=== PATIENT | female | born 1955 | race Caucasian/White ===

== ENCOUNTER 2023-12-19 09:14 | Outpatient (CLI) | payer MEDICARE, SELFPAY ==
--- NOTE | ~2023-12-19 | XR_ITS ---
Supine and upright views of the abdomen Clinical history: Right ureteral stone Findings: Bowel gas pattern is nonspecific. No evidence for obstruction or free air. No abnormal mass lesion or calcification is seen. Probable pelvic phleboliths. Osseous structures are intact. Impression: No significant abnormality is seen. Reviewed, dictated and finalized at [facility]. RBOARD BOX MAKER Impression: No significant abnormality is seen.
== END 2023-12-19 09:15 | disposition home or self-care (01) ==
PROVIDERS: PCP Family Medicine; Visit Provider Urology
DX: N20.1 Calculus of ureter (principal)
CPT/HCPCS: 74018

== ENCOUNTER 2024-03-13 01:19 | Day surgery (SDC) | payer MEDICARE, SELFPAY ==
--- NOTE | 2024-03-06 11:00 | PC.NURSE ---
Report to the Outpatient Waiting Room, entrance under the green pavilion located off [facility], at time _9 AM on date _03/13/24 . Planned Procedure Time: __11 AM .? Time changes happen often and if your time is changed the preop area will call you the afternoon before. - You and your visitor will be asked to self-screen and do not enter if you have any COVID symptoms. Please call surgeon if you need to reschedule. - A mask is optional within the hospital at this time. Patients may have clear liquids (water, carbonated beverages, clear teas, apple juice) until 3 hours prior to surgery( 8AM) with a maximum of 20 ounces. - No food from midnight until time of surgery and no smoking. This includes no chewing gum, candy or mints. Take only the following medications with a SIP of water on the morning of surgery: ___INHALER IF NEEDED DO NOT STOP ANY OF YOUR OTHER PRESCRIPTION MEDICATIONS PRIOR TO SURGERY EXCEPT THE FOLLOWING Medications to discontinue per physician __HOLD ALL VITAMINS AND SUPPLEMENTS 3 DAYS PRE OP Date to take last dose____03/09/24 Please no make-up, nail cypriot, hairspray, perfume, deodorant, or body powder the day of surgery.? No jewelry (including any body piercings) or valuables the day of surgery, leave them at home.? Please take a shower or bath the night before, or the morning of, surgery with an antibacterial soap.? Wear comfortable, loose fitting clothing.? Children are encouraged to wear pajamas. - Jewelry must be removed prior to entering the operating room.? Rings and piercings that are not removed may be cut off. - The hospital will not accept responsibility for valuables.? - Please leave all valuables, including medications, at home the day of surgery. If you are going home after surgery, a licensed driver manager must drive you home.? - NO public transportation without another adult if you receive anesthesia. - We recommend that an adult stay with you for 24 hours following discharge. - We also recommend that you do not drive, make important decision, drink alcoholic beverages, or take any drugs that were not prescribed by your health care provider for at least 24 hours after your discharge time. For Pediatric surgeries, we recommend two adults accompany the child home. Follow any additional instructions given to you from your surgeon. Telephone instructions given to ___PATIENT and asked if any additional questions and then verbalized understanding. Patient advised to call surgeon office or pre surgery nurse liaison [phone] if any additional questions.
[2024-03-06 11:22] VITALS: BMI 26.3
--- OUTSIDE RECORDS SUMMARY | 2024-03-13 01:22 | XMS_ITS | Encounter Summary ---
Author Organization [facility] Address [address] [place] [address]. [place], [place] [address] [place] [address] Care Team Providers Care Academic Adviser Name Role Phone Matt Hale MD Primary Care Provider [phone] Roger [place] MD Primary Care Provider [phone] Adela Patino MD Primary Care Provider [phone] Encounter Details Date Type Department Care Team (Late st Contact Info) Description 07/19/2018 Abstract SFL CONVERSION [address] [place] [address] , Generic Conversion, Social History Tobacco Use Types Packs/Day Years Used Date Smoking Tobacco: Never Assessed Comments Unknown Sex and Gender Information Value Date Recorded Sex Assigned at Female 02/12/2019 10:15 AM DIRECTOR EQUIPMENT Legal Sex Female 10:50 PM DIRECTOR EQUIPMENT Gender Identity Female 02/12/2019 10:15 AM DIRECTOR EQUIPMENT Sexual Orientation Not on file documented as of this encounter Plan of Treatment Upcoming Encounters Date Type Department Care Team (Late st Contact Info) Description 03/30/2024 8:00 AM DIRECTOR EQUIPMENT Appointment [facility] [address] [place] [address] Angy Lugo PA [address] [place] [address] documented as of this encounter Visit Diagnoses Not on filedocumented in this encounter Additional Health Concerns Infection Onset Date Last Indicated Resolved Time COVID-19 Rule Out 07/05/2020 07/05/2020 07/05/2020 7:56 PM CDT COVID-19 Rule Out 01/14/2021 01/14/2021 01/14/2021 7:26 PM DIRECTOR EQUIPMENT documented as of this encounter Care Teams Academic Adviser Relationship Specialty Start Date End Date Matt Hale MD [address] [place] [phone] PCP - General FAMILY PRACTICE 08/05/18 07/04/20 Roger Newton MD [address] [place] [phone] PCP - General FAMILY PRACTICE 07/05/20 01/16/21 Adela Patino MD [address] [place] [id number] PCP - General FAMILY PRACTICE 10/24/23 documented as of this encounter
--- OUTSIDE RECORDS SUMMARY | 2024-03-13 01:22 | XMS_ITS | Clinical Summary ---
Author Organization [facility] Address [address] [place] [address] Phone Care Team Providers Care Wood Sash And Frame Carpenter Name Role Phone Matt Hale MD Primary Care Provider [phone] Social History Tobacco Use Types Packs/Day Years Used Date Smoking Tobacco: Never Assessed Comments Unknown Sex and Gender Information Value Date Recorded Sex Assigned at Not on file Legal Sex Female 11:22 PM CDT Gender Identity Not on file Sexual Orientation Not on file Plan of Treatment Health Maintenance Due Date Last Done Comments DEXA Bone Density 1955 Hepatitis C Virus (HCV) Screening 1955 TdaP Immunization 1955 Colonoscopy 2001 Colorectal Cancer Screening 2001 Cologuard 2006 Immunochemical Fecal Occult Blood 2006 Mammogram 2006 Pneumococcal Immunization (5 0+ years) (1 of 1 - PCV) 2006 Zoster Immunization (1 of 2) 2006 Influenza Immunization (#1) 2023 12/03/2016 SARS-COV-2 Immunization ( season) 2023 11/22/2020, 04/05/2020, 03/15/2020 Respiratory Syncytial Virus (RSV) Immunization (Adult) (1 - 1-dose 75+ series) 06/21/2031 Hepatitis B Immunization Aged Out No longer eligible based on patient's age to complete this topic Meningococcal Immunization (ACWY) Aged Out No longer eligible b ased on patient's age to complete this topic Rotavirus Immunization Aged Out No lo nger eligible based on patient's age to complete this topic Insurance [facility] Care Teams Wood Sash And Frame Carpenter Relationship Specialty Start Date End Date Matt Hale MD [address] [place] [address] PCP - General Geriatric Medicine 03/18/18
--- OUTSIDE RECORDS SUMMARY | 2024-03-13 01:22 | XMS_ITS | Encounter Summary ---
Author Organization [facility] Address [address] [place] [address]. [place], [place] [address] [place] [address] Care Team Providers Care Supervisor Finishing Name Role Phone Matt Hale MD Primary Care Provider [phone] Roger Newton MD Primary Care Provider [phone] Adela Patino MD Primary Care Provider [phone] Reason for Referral * Surgical (Routine) - Closed Specialty Diagnoses / Procedures Referred By Contac roberta Referred To Contact Diagnoses meniscus tear Procedures Case request operating room: ARTHROSCOPY KNEE KNEE SCOPE,MED/LAT MENISECTOMY Pete Patel MD [address] [place] [address] Phone: tel: fax: Pete Patel MD [address] [place] [address] Phone: tel: fax: Referral ID Status Reason Start Date Expiration Date Visits Re quested Visits Authorized [id number] Closed 09/16/2018 10/18/2019 1 1 Encounter Details Date Type Department Care Team (Late st Contact Info) Description 09/16/2018 Prep for Procedure [facility] [place] [address] Pete Patel MD [address] [place] [address] Social History Tobacco Use Types Packs/Day Years Used Date Smoking Tobacco: Never Smokeless Tobacco: Never Alcohol Use Standard Drinks/Week Comments Yes 0 (1 standard drink = 0.6 oz pur e alcohol) Occasionally Comments Unknown Sex and Gender Information Value Date Recorded Sex Assigned at Female 02/12/2019 10:15 AM DIGITAL MARKETING MANAGER Legal Sex Female 10:50 PM DIGITAL MARKETING MANAGER Gender Identity Female 02/12/2019 10:15 AM DIGITAL MARKETING MANAGER Sexual Orientation Not on file documented as of this encounter Plan of Treatment Upcoming Encounters Date Type Department Care Team (Late st Contact Info) Description 03/30/2024 8:00 AM DIGITAL MARKETING MANAGER Appointment [facility] [address] [facility] [place] [address] Angy Lugo PA [address] [place] [address] Scheduled Orders Name Type Priority Associated Diagnoses Orde r Schedule Case request operating room: ARTHROSCOPY KNEE Case Request Routine Once for 1 Occurrences starting 09/16/2018 until 09/16/2018 documented as of this encounter Visit Diagnoses Not on filedocumented in this encounter Additional Health Concerns Infection Onset Date Last Indicated Resolved Time COVID-19 Rule Out 07/05/2020 07/05/2020 07/05/2020 7:56 PM CDT COVID-19 Rule Out 01/14/2021 01/14/2021 01/14/2021 7:26 PM DIGITAL MARKETING MANAGER documented as of this encounter Care Teams Supervisor Finishing Relationship Specialty Start Date End Date Matt Hale MD [address] [place] [phone] PCP - General FAMILY PRACTICE 08/05/18 07/04/20 Roger Newton MD [address] [place] [phone] PCP - General FAMILY PRACTICE 07/05/20 01/16/21 Adela Patino MD [address] [place] [address] PCP - General FAMILY PRACTICE 10/24/23 documented as of this encounter
--- OUTSIDE RECORDS SUMMARY | 2024-03-13 01:22 | XMS_ITS | Clinical Summary ---
Author Organization [facility] Address [address] [place] [address]. [place], [place] [address] [place] [address] Care Team Providers Care Circle Cutting Saw Operator Name Role Phone Adela Patino MD Primary Care Provider [phone] Allergies Active Allergy Reactions Criticality Noted Date Comments Codeine Hives 11/26/2017 Ibuprofen Other (see comment) 09/17/2018 Not allergic just can't take because of her kidneys Penicillins Unknown 11/26/2017 Patient states this happened in childhood- reaction unknown Sertraline Palpitations Low 11/26/2017 Sulfa Antibiotics Unknown 11/26/2017 Patient states this is since childhood- reaction unknown Medications PROAIR HFA 108 (90 Base) MCG/ACT inhaler Inhale 1 puff into the lungs as needed. 04/22/2019 Active FLOVENT HFA 110 MCG/ACT inhaler Inhale 1 puff into the lungs as needed. 04/22/2019 Active nystatin powder 09/19/2020 Act rell calcium carb-cholecalci ferol (OSCAL) 250-3.125 MG-MCG tablet Take 1 tablet by mouth daily. Active oxyCODONE-aceta minophen (PERCOCET) 5-325 MG tabletIndicatio ns:Acute Pain < 3 Day Supply Take 1 tablet by mouth every 4 (four) hours as needed for Pain. Indications: Acute Pain < 3 Day Supply 18 tablet 11/05/2023 Active tamsulosin (FLOMAX) 0.4 MG Cap Take 1 capsule (0.4 mg total) by mouth daily. 30 capsule 11/05/2023 Active metoclopramide (REGLAN) 10 MG tablet Take 1 tablet (10 mg total) by mouth every 6 (six) hours as needed (nausea). 20 tablet 11/05/2023 Active Active Problems Problem Noted Date Diagnosed Date Adductor tendonitis 05/29/2022 Bicipital tendinitis of left shoulder 06/12/2019 S/P laparoscopic cholecystectomy 03/04/2019 Right nephrolithiasis 02/12/2019 Hepatic steatosis 02/12/2019 Adult celiac disease (HHS/HCC) 11/26/2017 Resolved Problems Problem Noted Date Diagnosed Date Resolved Date Abnormal biliary HIDA scan 02/20/2019 0 03/04/2019 Overview (02/20/2019): Added automatically from request for surgery [id number] RUQ pain 02/12/2019 03/04/2019 Aftercare following surgery 10/08/2018 02/12/2019 Acute medial meniscus tear o f left knee, subsequent encounter 09/08/2018 02/12/2019 Primary osteoarthritis of left knee 08/29/2018 02/12/2019 Pain in the side 11/26/2017 02/12/2019 Encounter for preventive health examination 11/06/2017 02/12/2019 Encounters Date Type Department Care Team Description 01/31/2024 2:13 PM SANDING SUPERVISOR - 01/31/2024 11:59 PM SANDING SUPERVISOR Hospital Encounter [facility] [address] [place] [address] Angy Lugo, PA Discharge Disposition: Home or Self Care (Routine Discharge) 01/31/2024 Travel from Last 3 Months Family History Medical History Relation Comments Cancer Father Breast Cancer Maternal Aunt age unknown Cancer Maternal Grandmother Heart Disease Maternal Grandmother Cancer Mother Cancer Sister Relation Status Comments Father Maternal Aunt Maternal Grandmother Mother Sister Social History Tobacco Use Types Packs/Day Years Used Date Smoking Tobacco: Former Cigarettes Q uit: 06/30/1988 Smokeless Tobacco: Never Tobacco Cessation:Counseling Given: Not Answered Alcohol Use Standard Drinks/Week Comments Yes 1.7 (1 standard drink = 0.6 oz p ure alcohol) Occasionally Comments No Sex and Gender Information Value Date Recorded Sex Assigned at Female 02/12/2019 10:15 AM SANDING SUPERVISOR Legal Sex Female 10:50 PM SANDING SUPERVISOR Gender Identity Female 02/12/2019 10:15 AM SANDING SUPERVISOR Sexual Orientation Not on file Last Filed Vital Signs Vital Sign Reading Time Taken Comments Blood Pressure 121/69 11/05/2023 12:00 AM CDT Pulse 88 11/04/2023 9:41 PM CDT Temperature 37.1 ??C (98.8 ??F) 11/04/2023 9:41 PM CD T Respiratory Rate 16 11/04/2023 9:41 PM CDT Oxygen Saturation 95% 11/05/2023 12:15 AM CDT Inhaled Oxygen Concentration - - Weight 72.6 kg (160 lb) 11/04/2023 9:37 PM CDT Height 165.1 cm (5' 5 ) 11/04/2023 9:37 PM CDT Body Mass Index 26.63 11/04/2023 9:37 PM CDT Plan of Treatment Upcoming Encounters Date Type Department Care Team (Late st Contact Info) Description 03/30/2024 8:00 AM SANDING SUPERVISOR [facility]ointment [facility] [address] [place] [address] Angy Lugo PA [address] [place] [address] Health Maintenance Due Date Last Done Comments Hepatitis C 1974 DTaP, Tdap and Td Vaccines (1 - Tdap) 06/21/1975 RSV Immunization or 60+ Years (1 - Risk 60-74 years 1-dose series) 2016 Annual Medicare Wellness Visit 2021 Pneumococcal Vaccine: 65+ Years (1 of 1 - PCV) 2021 COVID-19 Vaccine ( season) 2023 11/22/2020, 04/05/2020, 03/15/2020 Influenza Adult (#1) 2023 12/27/2020, 11/24/2019, 11/18/2018, Additional history exists Mammogram Screening 03/18/2025 03/18/2023, 03/15/2022, 03/09/2021, Additional history exists Colorectal Cancer Screening Colonoscopy (10 Years) 07/08/2030 07/08/2020, 07/08/2020 Zoster Vaccines Completed 06/30/2019, 04/24/2019 Dexa Scan (General) Completed 06/06/2023 Meningococcal B Vaccine Aged Out No l onger eligible based on patient's age to complete this topic Meningococcal Vaccine Aged Out No daniella jonatan eligible based on patient's age to complete this topic RSV Immunizations Under 20 Months Aged Out No longer eligible based on patient's age to complete this topic Procedures Procedure Name Priority Date/Time Associated Diagnosis Comments XR HIP RT 2V Routine 01/31/2024 2:35 PM SANDING SUPERVISOR Right hip pain BONE DENSITY/DEXA Routine 06/06/2023 2:5 3 PM CDT Post-menopausal MG SCREENING W MIKO AMBER DIGI Routine 03/18/2023 8:33 AM SANDING SUPERVISOR Encounter for screening mammogram for breast cancer COLONOSCOPY 07/08/2020 7:39 AM CDT from Last 3 Months or Most Recently Relevant to Health Maintenance Results * XR HIP RT 2V (01/31/2024 2:35 PM SANDING SUPERVISOR) Anatomical Region Laterality Modality Hip Radiographic Lu ging 02/01/2024 3:34 PM SANDING SUPERVISOR Impressions 02/01/2024 3:35 PM SANDING SUPERVISOR IMPRESSION: Mild degenerative changes about the right hip. This is stable compared back to October. Referred By: ?? Interpreted By: Naeem Cordero MD, 02/01/2024 3:34 PM Narrative 02/01/2024 3:35 PM SANDING SUPERVISOR [address] [place] [address] Procedure(s): XR HIP RT 2V Date of service: 01/31/2024 2:35 PM Provided clinical information: 68 years, Female, RIGHT HIP PAIN Procedure and materials: AP and frog-leg view right hip. Comparison studies: October 24, 2023. Findings: Sclerosis is present about the right acetabulum. No fracture, dislocation or acute bony abnormality. Mild joint space narrowing of the right femoral acetabular joint. Procedure Note Naeem Cordero MD - 02/01/2024 [facility] [address] [place] [address] Procedure(s): XR HIP RT 2V Date of service: 01/31/2024 2:35 PM Provided clinical information: 68 years, Female, RIGHT HIP PAIN Procedure and materials: AP and frog-leg view right hip. Comparison studies: October 24, 2023. Findings: Sclerosis is present about the right acetabulum. No fracture, dislocation or acute bony abnormality. Mild joint spacenarrowing of the right femoral acetabular joint. IMPRESSION: Mild degenerative changes about the right hip. This is stable compared to October. Referred By: Interpreted By: Naeem Cordero MD, 02/01/2024 3:34 PM [facility] Final Result * BONE DENSITY/DEXA (06/06/2023 2:53 PM CDT) Anatomical Region Laterality Modality Bone Bone Density 06/07/2023 8:10 AM CDT Impressions 06/07/2023 8:12 AM CDT Impression: 1. Within normal limits in the lumbar spine. 2. Consistent with osteopenia in both hips. Ordered By: ELOISE RHOADES Interpreted By: Peyman Tobar MD, 06/07/2023 8:10 AM Narrative 06/07/2023 8:12 AM CDT Examination: DEXA Bone densitometry Clinical history: Postmenopausal. Osteoporosis screening. Comparison: None. Technique: DEXA bone mineral density evaluation was performed in the AP projection over the lumbar spine and over both hips in the AP projection utilizing standard imaging techniques. Assessment: The BMD measured at the AP spine L1-L4 is 1.030 g/cm2 with a T-score of -0.2 and a Z-score of ??1.7. ?? Bone density is up to 10% below young normal. This patient is considered normal according to the World Health Organization (WHO) criteria. Fracture risk is low. The BMD measured at the femoral neck left is 0.654 g/cm2 with a T-score of -1.8 and a Z-score of -0.1. ?The patient is considered osteopenic according to World Health Organization (WHO) criteria. Bone density is between 10 and 25% below young normal. Fracture risk is moderate. Treatment is advised. The BMD measured at the femoral neck right is 0.731 g/cm2 with a T-score of -1.1 and a Z-score of ??0.6. ?? The patient is considered osteopenic according to World Health Organization (WHO) criteria. Bone density is between 10 and 25% below young normal. Fracture risk is moderate. Treatment is advised. FRAX 10-year fracture risk: Major Osteoporotic Fracture: 16%. Hip Fracture: 2.2%. Recommendations: All patients should ensure an adequate intake of dietary calcium and vitamin D. The NOF recommend adults under the age of 50 need 1000 mg of calcium and 400-800 IU of vitamin D daily. Effective therapy for the prevention and treatment of osteoporosis include biphosphonates. Follow-up: People with diagnosed cases of osteoporosis or at high risk for fracture should have regular bone mineral density test. For patients eligible for Medicare, routine testing is allowed once every 2 years. Testing frequency can be increased to one year for patients who have rapidly progressing disease, those who are receiving or discontinuing medical therapy to restore bone mass, or have additional risk factors. Based on these results, a followup exam is recommended in two years. Procedure Note Peyman Tobar MD - 06/07/2023 Examination: DEXA Bone densitometry Clinical history: Postmenopausal. Osteoporosis screening. Comparison: None. Technique: DEXA bone mineral density evaluation was performed in the APprojection over the lumbar spine and over both hips in the AP projectionutilizing standard imaging techniques. Assessment: The BMD measured at the AP spine L1-L4 is 1.030 g/cm2 with a T-score of-0.2 and a Z-score of 1.7. Bone density is up to 10% below youngnormal. This patient is considered normal according to the World HealthOrganization (WHO) criteria. Fracture risk is low. The BMD measured at the femoral neck left is 0.654 g/cm2 with a T-score of-1.8 and a Z-score of -0.1. The patient is considered osteopenicaccording to World Health Organization (WHO) criteria. Bone density isbetween 10 and 25% below young normal. Fracture risk is moderate.Treatment is advised. The BMD measured at the femoral neck right is 0.731 g/cm2 with a T-scoreof -1.1 and a Z-score of 0.6. The patient is considered osteopenicaccording to World Health Organization (WHO) criteria. Bone density isbetween 10 and 25% below young normal. Fracture risk is moderate.Treatment is advised. FRAX 10-year fracture risk: Major Osteoporotic Fracture: 16%. Hip Fracture: 2.2%. Recommendations: All patients should ensure an adequate intake of dietary calcium andvitamin D. The NOF recommend adults under the age of 50 need 1000 mg ofcalcium and 400-800 IU of vitamin D daily. Effective therapy for theprevention and treatment of osteoporosis include biphosphonates. Follow-up: People with diagnosed cases of osteoporosis or at high risk for fractureshould have regular bone mineral density test. For patients eligible forMedicare, routine testing is allowed once every 2 years. Testing frequencycan be increased to one year for patients who have rapidly progressingdisease, those who are receiving or discontinuing medical therapy torestore bone mass, or have additional risk factors. Based on these results, a followup exam is recommended in two years. Impression: 1. Within normal limits in the lumbar spine. 2. Consistent with osteopenia in both hips. Ordered By: ELOISE RHOADES Interpreted By: Peyman Tobar MD, 06/07/2023 8:10 AM us Eloise Rhoades APNP DEXA Final Resul t * MG SCREENING W MIKO AMBER DIGI (03/18/2023 8:33 AM SANDING SUPERVISOR) Anatomical Region Laterality Modality Breast Bilateral Mammography 03/18/2023 10:4 6 AM SANDING SUPERVISOR Narrative 03/18/2023 10:46 AM SANDING SUPERVISOR Examination: Digital screening mammogram with CAD. Clinical history: Asymptomatic patient presents for routine screening. Comparison: 03/15/2022, 03/09/2021, 01/20/2020, 01/13/2019. Technique: Bilateral digital mammograms. The exam was interpreted with the use of a computer-aided detection (CAD) system. ??Additional 3-D tomosynthesis images were acquired. Tissue density: The breast tissue contains scattered fibroglandular densities. Findings: The breast tissue contains scattered fibroglandular densities. ?? Benign-appearing calcification noted. No suspicious mass, microcalcification or area of architectural distortion can be identified. From a mammographic standpoint, routine followup in one year would seem adequate. IMPRESSION: No suspicious change since the previous exams. Recommendation: 1: Routine Screening ??Bilateral ??in 1 Year Assessment: ACR BI-RADS 2 - BENIGN FINDING(S) Ordered By: SOFIA DOUGLASS Interpreted By: Peyman Tobar MD, 03/18/2023 10:46 AM us Sofia Douglass MD MAMMO Final Result * COLONOSCOPY (07/08/2020 7:39 AM CDT) us Chetan Hdz MD GI PROCEDURE ORDERABLES Final Result from Last 3 Months or Most Recently Relevant to Health Maintenance Insurance [employer] Advance Directives * Full Code (Latest Code Status on File) Date Activated Date Inactivated Comments 01/17/2021 9:41 AM 01/17/2021 12:27 PM Care Teams Circle Cutting Saw Operator Relationship Specialty Start Date End Date Adela Patino MD [address] [place] [address] PCP - General FAMILY PRACTICE 10/24/23
--- NOTE | 2024-03-13 07:15 | WPDHPUPDATE1 ---
History and Physical Update Update Date/Time: 03/13/24 07:15 History and Physical has been reviewed, including an updated exam of the patient. There are NO changes in the patient's condition. Risks, benefits, and alternatives have been discussed and questions answered. Patient agrees to proceed with procedure.
[2024-03-13 08:52] VITALS: BP 144/74; PULSE 62; RESP 16; TEMP 36.7; O2SAT 99
[2024-03-13] MEDS: LACTATED RINGERS 1,000 ML 30 ML IV CONT ×2 (09:28→12:16)
[2024-03-13 09:31] VITALS: BMI 26.1
--- NOTE | 2024-03-13 10:18 | P.PNAN_ITS ---
Anes - Initial Pre Proc Eval Procedure: Operation Date: 03/13/24 11:00 Proposed Procedures p Partial Plantar Fasciectomy Left Loot - Moiz Koch Jr., DPM Date/Time: 03/13/24 10:18 Surgeon: Moiz Koch Jr., DPM Pre Op Diagnosis: plantar fasciitis left foot Patient Data Age: 68 Gender: F Height: 1.65 m Weight: 71.2 kg Last Vital Signs Temp 36.7 C 03/13/24 08:52 Pulse 62 03/13/24 08:52 Resp 16 03/13/24 08:52 BP 144/74 H 03/13/24 08:52 Pulse Ox 99 03/13/24 08:52 O2 Del Method Room Air 03/13/24 08:52 Allergies Allergy/AdvReac Type Severity Reaction Status Date / Time codeine Allergy Severe hives Verified 03/13/24 09:15 penicillin G Allergy Unknown unknown Verified 03/13/24 09:15 Home Medications ?Medication ?Instructions ?Recorded ?Confirmed ?Type cholestyramine (with sugar) 4 gram 1 ea PO DAILY 08/29/22 03/06/24 History oral powder ofloxacin 0.3 % ear drops 5 drp RIGHT EAR DAILY #5 mL 08/29/22 03/06/24 Rx calcium carbonate (Calcium 600) 600 mg PO DAILY 03/06/24 03/13/24 History cholecalciferol (vitamin D3) 125 125 mcg PO DAILY 03/06/24 03/06/24 History mcg (5,000 unit) capsule fluticasone propionate 110 1 inh inhalation PRN 03/06/24 03/06/24 History mcg/actuation HFA aerosol inhaler (Flovent HFA) magnesium gluconate 12.5 mg 250 mg PO HS 03/06/24 03/13/24 History magnesium (250 mg) tablet nitrofurantoin macrocrystal 100 mg 100 mg PO BID UTI 03/06/24 03/13/24 History capsule Patient hx anesthesia problems: post op nausea/vomiting Family hx anesthesia problems: none Results Review: All pre-operative results and documents have been reviewed as part of the pre- operative evaluation. [facility]LY [facility] Past Medical History Medical History (Updated 03/13/24 @ 10:18 by Trino Stone DO) PONV (postoperative nausea and vomiting) Asthma Seizure Family History Family History (Updated 08/29/22 @ 09:28 by Nikia Hercules CMA) Father Alcoholism Lung cancer Mother Cervical cancer Cerebrovascular accident Sibling Cervical cancer Social History Social History (Updated 08/29/22 @ 09:17 by Nikia Hercules CMA) Smoking packs per day: 0.5 Smoking cigarettes per day: 10.0 Years smoked: 8 Smoking pack-years: 4.00 Smoking status: Former smoker Tobacco type: cigarettes Smoking end date: 02/11/87 Alcohol intake: current Drinks per week: 2 Lack of Transportation: No Lack of Food: Never True Current Housing: I Have Housing Concerned About Future Housing: No Difficulty Paying Gas/Electric Bills: No Difficulty Paying for Meds: No Currently Unemployed: No Education: Associate Degree Difficulty w/ Childcare or Family Care: No Living arrangements: with family Spiritual care concerns: No Anes - Eval Final PreProcedure Day of Procedure 03/13/24 10:18 Patient weight: overweight Heart: regular rate and rhythm Lungs: clear to auscultation Airway: Mallampati scale class II Neurological: alert and oriented Last oral intake: >/= 8 hours ASA classification: II Emergent: no Anesthetic plan: proceed Anesthesia type and monitoring: general GIVS and standard monitoring Results Review: All pre-operative results and documents have been reviewed as part of the pre-operative evaluation. Informed Consent: The patient's anesthetic plan and its attendant risks and benefits were discussed with the patient/family/POA. Questions were solicited and answers provided to the satisfaction of the patient/family/POA.
[2024-03-13] MEDS: ceFAZolin 2 GM/D5W 50 ML 2 GM/50 ML BAG IVPB (11:29)
[2024-03-13] MEDS: LIDOCAINE 2% LOCAL INJ 20 ML VIAL 10 ML INFILTRATE (11:49)
[2024-03-13] MEDS: BUPivacaine HCL 0.5% 10 ML AMP INFILTRATE (11:50)
[2024-03-13 12:16] VITALS: BP 107/76; PULSE 77; RESP 12; O2SAT 93
--- NOTE | 2024-03-13 12:18 | P.OP_ITS ---
Procedure Note - Detailed Date of Procedure 03/13/24 Pre-op Diagnosis plantar fasciitis left foot Post-op Diagnosis Same Procedure Performed Partial plantar fasciectomy left foot Surgeon Moiz Koch Jr., DPM Anesthesia MAC and Local Indications Chronic inferior left heel pain Description of Procedure Under mild sedation, the patient was brought in to the operating room, placed on the operating table in the supine position. A pneumatic ankle tourniquet was placed about the patient's left ankle. Following general anesthesia, local anesthesia was obtained about the affected lower extremity utilizing 20 mL of a one to mix of 2% Lidocaine plain and 0.5% M arcaine plain to the tibial nerve. The foot was then scrubbed, prepped, and draped in the usual aseptic manner. An Esmarch bandage was then used to exsanguinate the patient's foot and the pneumatic ankle tourniquet was then inflated. Next, an incision was made starting distal to the medial tubercle of the calcaneus extending distally 3cm. All bleeders were cauterized as necessary. Next the dissection was continued down to the plantar fascia it was exposed medially and laterally with [place] retractors. Two thirds of the medial plantar fascia was transected and a 4mm portion was also cut and discarded. The wound site was flushed with sterile saline. The deep subcutaneous tissue was reapproximated with 3.0 Vicryl and the skin was reapproximated with 2.0 Prolene and 3.0 Prolene in Vertical mattress and Simple interrupted suture technique. Upon completion of the procedure, the plantar incision was dressed with adaptic, 4x4 gauze, kerlix and coban. The pneumatic ankle tourniquet was then deflated and a prompt hyperemic response was noted to all digits of the affected foot. A CAM Walker boot was then applied. The patient did very well with the procedure and the anesthesia. The patient was transferred to the recovery room with vital signs stable and vascular status intact to all toes of the affected foot. Following a period of postoperative monitoring, the patient will be discharged home on the following written and oral postoperative instructions: 1. The patient should keep the dressing clean, dry, and intact. Use a cast protector bag with showers. 2. The patient will be non weight bearing with a knee scooter for one week followed by two weeks of protected weight bearing with CAM walker boot. 3. Patient should ice and elevate the affected foot when at rest. 4. The patient is to contact Dr. Koch for all postop care and if any problems arise. 5. Prescriptions were written for Percocet 5/325 dispensed 40 to be taken 1 p.o. q.4-6 hours as needed for severe pain. . Estimated Blood Loss 1 Drains No Packing Yes Pathology None sent Complications No immediate complications Condition Stable Disposition Same day
[2024-03-13 12:45] VITALS: BP 124/75; PULSE 70; RESP 12; O2SAT 93
[2024-03-13 13:15] VITALS: BP 154/82; PULSE 65; RESP 14
== END 2024-03-13 13:37 | disposition home or self-care (01) ==
PROVIDERS: PCP Family Medicine; Visit Provider Podiatrist Foot & Ankle Surgery
PROC: (CPT 28119; principal; 2024-03-13 11:00)
DX: M72.2 Plantar fascial fibromatosis (principal); Z87.891 Personal history of nicotine dependence
CPT/HCPCS: 28060; J0690; J1100; J2003; J2250; J2405; J2704; J3010; J7120

== ENCOUNTER 2024-04-02 12:45 | Outpatient (CLI) | payer MEDICARE, SELFPAY ==
--- NOTE | ~2024-04-02 | MR_ITS ---
EXAMINATION: MR hip RT wo con DATE: 04/02/2024 13:48 INDICATION: Right hip pain. TECHNIQUE: Magnetic resonance imaging (MRI) of the right hip was performed without intravenous contra st. COMPARISON: Pelvis and right hip radiographs 03/26/2024 FINDINGS: Bones/cartilage: Alignment is normal. No fracture. There is decreased femoral head/neck offset bilaterally, which may be seen with femoral acetabular impingement. There are tiny osteophytes of the hips. Small field-of-v iew images of right hip demonstrate shallow partial-thickness cartilage loss. Labrum: There is a tear of the right acetabular labrum. Fluid: There is no hip joint effusion. No significant trochanteric bursitis. Soft tissues: The gluteus minimus and gluteus medius tendons are normal. The iliopsoas tendons are normal. There is mild tendinopathy of the hamstring origins bilaterally. IMPRESSION: 1. Mild chondrosis of right hip. 2. Tear of right acetabular labrum. Reviewed, dictated and finalized at location A. URIZER
== END 2024-04-02 12:46 | disposition home or self-care (01) ==
LOC: GOSHIMG 12:45
PROVIDERS: PCP Nurse Practitioner Family; Visit Provider Nurse Practitioner Family
DX: M25.551 Pain in right hip (principal)
CPT/HCPCS: 73721

== ENCOUNTER 2024-05-08 13:10 | Outpatient (CLI) | payer MEDICARE, SELFPAY ==
--- NOTE | ~2024-05-08 | XR_ITS ---
EXAMINATION: XR lg joint inject/asp w image DATE: 05/08/2024 13:59 INDICATION: Right hip primary osteoarthritis. TECHNIQUE: A time-out was performed to verify the patient's name, date of , and procedure to b e performed. The procedure including the risks, benefits, and alternatives was discussed with the pat ient. Risks discussed included bleeding and infection. The patient understood the risks and agreed to proceed. The skin overlying the right hip joint was prepped and draped in usual sterile fashion. A nesthetic was administered with 1% lidocaine subcutaneously. A 22 G needle was advanced under fluoro scopic guidance into the joint. Subsequently, injectate consisting of 2 mL 0.5% bupivacaine and 1 m L 80 mg/mL Depo-Medrol was instilled. The needle was removed and the entry site was cleaned and dres sed. There were no immediate complications. Fluoroscopy exposure time was 0.1 minutes. The total num [place] of images was 1. FINDINGS: Real-time fluoroscopy demonstrates the needle in the right hip joint. IMPRESSION: 1. Fluoroscopy guided right hip joint injection of local anesthetic and steroid. Reviewed, dictated and finalized at location A. IMPRESSION: 1. Fluoroscopy guided right hip joint injection of local anesthetic and steroid .
--- OUTSIDE RECORDS SUMMARY | 2024-05-08 13:16 | XMS_ITS | Clinical Summary ---
Author Organization [facility] Address [address] [place] [address] Phone Care Team Providers Care Pediatric Psychiatrist Name Role Phone Matt Hale MD Primary Care Provider [phone] Social History Tobacco Use Types Packs/Day Years Used Date Smoking Tobacco: Never Assessed Comments Unknown Sex and Gender Information Value Date Recorded Sex Assigned at Not on file Legal Sex Female 11:22 PM CDT Gender Identity Not on file Sexual Orientation Not on file Plan of Treatment Health Maintenance Due Date Last Done Comments Hepatitis C Virus (HCV) Screening 1955 TdaP Immunization 1955 Colonoscopy 2001 Colorectal Cancer Screening 2001 Cologuard 2006 Immunochemical Fecal Occult Blood 2006 Pneumococcal Immunization (50+ years) (1 of 1 - PCV) 2006 Zoster Immunization (1 of 2) 2006 Influenza Immunization (#1) 10/13/202311/12, 10/29/2013, 12/12/2012, Additional history exists SARS-COV-2 Immunization ( season) 2023 11/22/2020, 04/05/2020, 03/15/2020 Respiratory Syncytial Virus (RSV) Immunization (Adult) (1 - 1-dose 75+ series) 06/21/2031 Hepatitis B Immunization Aged Out No longer eligible based on patient's age to complete this topic Meningococcal Immunization (ACWY) Aged Out No longer eligible based on patient's age to complete this topic Rotavirus Immunization Aged Out No lo nger eligible based on patient's age to complete this topic Insurance [facility] Care Teams Pediatric Psychiatrist Relationship Specialty Start Date End Date Matt Hale MD [address] [place] [address] PCP - General Geriatric Medicine 03/18/18
== END 2024-05-08 13:11 | disposition home or self-care (01) ==
PROVIDERS: PCP Family Medicine; Visit Provider Nurse Practitioner Family
DX: M16.11 Unilateral primary osteoarthritis, right hip (principal)
CPT/HCPCS: 20610; 77002; J1010

== ENCOUNTER 2024-07-28 12:38 | Outpatient (CLI) | payer MEDICARE, SELFPAY ==
--- NOTE | ~2024-07-28 | MR_ITS ---
MRI of the left foot CLINICAL HISTORY: Stress fracture, arthralgia TECHNIQUE: Axial proton-density and proton-density fat-sat images, sagittal T1-weighted and STIR imag es, and coronal T1-weighted and proton-density fat-sat images were performed. FINDINGS: There is susceptibility artifact at the plantar aspect of the fourth metatarsal head, which could indicate small metallic foreign body. This slightly obscures visualization this region. Visual ized bone marrow signal throughout the visualized foot are unremarkable otherwise. No marrow edema id entified. No evidence for fracture or stress fracture. No evidence for osteomyelitis. Joint spaces ar e intact. No erosive or degenerative arthropathy seen. No joint effusion seen. Visualized flexor and extensor tendons are intact. Intrinsic musculature of the foot is unremarkable. There does plantar fascia intact. No soft tissue mass or fluid collection seen. IMPRESSION: Focal susceptibility artifact at the plantar aspect of the fourth metatarsal head which could indicat e small metallic foreign body. Consider plain radiographic correlation. No other significant findings. Reviewed, dictated and finalized at location . IMPRESSION: Focal susceptibility artifact at the plantar aspect of the fourth metatarsal he ad which could indicate small metallic foreign body. Consider plain radiographi c correlation. No other significant findings.
--- NOTE | ~2024-07-28 | MR_ITS ---
MRI of the left ankle Clinical history: Stress fracture, arthralgia Technique: Coronal proton-density and proton-density fat-sat images, axial proton-density and proton- density fat-sat images, and sagittal proton-density and proton-density fat-sat images were acquired. Findings: Syndesmotic ligaments are intact. Anterior and posterior talofibular ligaments, and calcane ofibular ligament are intact. Deltoid ligament intact. Medial flexor tendons, peroneal tendons, anterior extensor tendons, and Achilles tendon are intact. T here is tendinosis of the distal tibialis posterior tendon. There is no osteochondral lesion of the talar dome. Joint spaces and bone marrow signals are unremark able. No degenerative or erosive arthropathy. No joint effusion. There is mild thickening and increased signal of the proximal plantar fascia, with minimal surroundin g soft tissue edema. Normal signal preserved in the sinus Tarsi. No soft tissue mass or fluid collect ion evident. Impression: Probable mild plantar fasciitis. Mild tendinosis of the distal tibialis posterior tendon. Reviewed, dictated and finalized at location . Impression: Probable mild plantar fasciitis. Mild tendinosis of the distal tibialis posterior tendon.
== END 2024-07-28 12:39 | disposition home or self-care (01) ==
LOC: GOSHIMG 12:38
PROVIDERS: PCP Podiatrist Foot & Ankle Surgery; Visit Provider Podiatrist Foot & Ankle Surgery
DX: M84.375A Stress fracture, left foot, initial encounter for fracture (principal); M25.572 Pain in left ankle and joints of left foot
CPT/HCPCS: 73718; 73721